=== PATIENT | female | born 1985 | race Caucasian/White ===

== ENCOUNTER 2023-04-27 04:24 | Day surgery (SDC) | payer OTHER ==
[2023-04-23 10:27] VITALS: BMI 30.2
[2023-04-27] MEDS ORDERED: oxyCODONE HCL 5 MG TABLET PO PRN (11:51)
[2023-04-27] MEDS ORDERED: ONDANSETRON 4 MG/2 ML VIAL IVPUSH PRN (11:51)
[2023-04-27] MEDS ORDERED: LACTATED RINGERS SOLUTION 1,000 ML IV SCH (12:00)
[2023-04-27] MEDS ORDERED: MIDAZOLAM HCL 2 MG/2 ML SINGLE DOSE VIAL ONE (12:09)
[2023-04-27] MEDS ORDERED: FENTANYL CITRATE/PF 50 MCG/ML VIAL ONE ×6 (12:09→14:33)
[2023-04-27] MEDS ORDERED: methylPREDNISolone NA SUCC 125 MG/2 ML VIAL ONE (12:26)
[2023-04-27] MEDS ORDERED: ceFAZolin SODIUM 1 GM VIAL IVPB ONE (12:30)
[2023-04-27] MEDS ORDERED: ONDANSETRON 4 MG/2 ML VIAL ONE (12:36)
[2023-04-27] MEDS ORDERED: ceFAZolin SODIUM 1 GM VIAL ONE (12:36)
[2023-04-27] MEDS ORDERED: PROPOFOL 20 ML ONE ×2 (12:50→13:41)
[2023-04-27] MEDS ORDERED: NEOSTIGMINE METHYLSULFATE 0.5 MG/1 ML - 10 ML MDV ONE (13:33)
[2023-04-27] MEDS ORDERED: PROPOFOL 40 ML ONE (15:19)
[2023-04-27 16:06] VITALS: RESP 18
[2023-04-27 18:26] VITALS: BP 120/70; PULSE 70; TEMP 98
== END 2023-04-27 18:15 | disposition home or self-care (01) ==
LOC: JASU-SURG 04:24
PROVIDERS: ATTEND Obstetrics & Gynecology
PROC: 0UB74ZZ Excision of Bilateral Fallopian Tubes, Percutaneous Endoscopic Approach (ICD-10-PCS; principal; 2023-04-27 11:30)
DX: Z30.2 Encounter for sterilization (principal)
CPT/HCPCS: 81025; 88305-TC; 94760